=== PATIENT | male | born 1970 | race Caucasian/White ===

== ENCOUNTER 2018-07-02 11:00 | Emergency (ER) | payer OTHER ==
[2018-07-02] MEDS: KETOROLAC 60 MG INJ IM (11:31)
[2018-07-02] MEDS: HYDROCODONE/APAP (5/325) TAB PO (11:31)
[2018-07-02] MEDS: METHYLPREDNISOLONE 125 MG INJ IM (11:31)
== END 2018-07-02 11:53 | disposition home or self-care (01) ==
LOC: FTE 11:00
DX: S39.012A Strain of muscle, fascia and tendon of lower back, initial encounter (principal); I10 Essential (primary) hypertension; X58.XXXA Exposure to other specified factors, initial encounter; Y92.9 Unspecified place or not applicable
CPT/HCPCS: 96372; 99284-25